=== PATIENT | female | born 1990 | race Caucasian/White ===

== ENCOUNTER 2019-02-24 14:20 | Emergency (ER) | payer OTHER ==
[~2019-02-24] VITALS: Ht 170.2 cm; Wt 68.0 kg
[2019-02-24 14:53] VITALS: BP 128/80
== END 2019-02-24 20:17 | disposition left against medical advice (07) ==
LOC: ER 14:24
DX: M79.601 Pain in right arm (principal); Z53.21 Procedure and treatment not carried out due to patient leaving prior to being seen by health care provider